=== PATIENT | female | born 1980 | race Caucasian/White ===

== ENCOUNTER 2021-07-18 09:07 | Outpatient (CLI) | payer MEDICAID, SELFPAY ==
--- NOTE | 2021-07-18 09:30 | MR_ITS ---
WS: [id number] MRI RIGHT KNEE HISTORY: RIGHT KNEE PAIN COMPARISON: 06/15/2021 Anterior cruciate ligament: Intact. Posterior cruciate ligament: Intact. Medial collateral ligament: Intact. Posterior lateral corner structures: Intact. Medial menisci: Intrasubstance degeneration in the posterior horn with no tear. Lateral meniscus: Intact. Normal signal, size and shape. Extensor mechanism: Distal quadriceps tendon and patellar tendons are intact. Fluid and soft tissue: No joint effusion. Tiny Sebastian's cyst. Sebastian's cyst is lobulated with a maximum diameter of 1.7 cm. Osseous and articular structures: Patellofemoral compartment: Focal chondromalacia in the medial patellar facet without involvement of the bone. Chondromalacia measures 3.6 mm. Medial compartment: Mild narrowing of the medial compartment. Moderate chondromalacia involving the t ibial plateau and femoral condyle cartilage. There several full-thickness defects but no underlying m arrow edema. Lateral compartment: Mild narrowing of the lateral compartment. Very minimal fissuring of the cartila ge. MR/MR knee RT wo con* [id number] IMPRESSION: 1. Mild narrowing of the medial compartment with moderate chondromalacia invol ving the cartilage of the femoral condyle and tibial plateau. No underlying mar row edema. 2. Focal chondromalacia medial patellar facet. 3. Very mild fissuring of the cartilage in the lateral compartment. 4. Small lobulated Sebastian's cyst.
== END 2021-07-18 09:08 | disposition home or self-care (01) ==
LOC: RADSHAW 09:09
PROVIDERS: PCP Family Medicine; Visit Provider Nurse Practitioner
DX: M94.261 Chondromalacia, right knee (principal); M71.21 Synovial cyst of popliteal space [Baker], right knee; M25.561 Pain in right knee
CPT/HCPCS: 73721

== ENCOUNTER → 2021-11-27 14:55 | Outpatient (BNVA) | payer MEDICAID, SELFPAY | PROVIDERS: PCP Family Medicine; Visit Provider Internal Medicine | DX: R76.8 Other specified abnormal immunological findings in serum (principal); B19.20 Unspecified viral hepatitis C without hepatic coma | CPT/HCPCS: 80053; 80074; 82105; 85025; 87522; 87902 ==

== ENCOUNTER 2021-12-27 06:22 | Outpatient (CLI) | payer MEDICAID, SELFPAY ==
--- NOTE | 2021-12-27 07:00 | US_ITS ---
WS: [id number] ULTRASOUND ABDOMEN LIMITED CLINICAL INFORMATION: hepatitis c COMPARISON: CT 2019 and ultrasound 2016 FINDINGS: Liver Size: Mild hepatomegaly Craniocaudal length: 16.1 cm. Echogenicity: Coarse and hypoechoic Surface nodularity: None. Mass (size and location): None. Normal hepatopedal flow in the main portal vein. Bile ducts Intrahepatic ducts: Normal. Common bile duct diameter: 0.4 cm. Gallbladder Prior cholecystectomy Pancreas Normal as visualized. Right kidney: Small echogenic lesion in the inferior pole likely benign angiomyolipoma. This is not p reviously seen on the prior imaging studies Hydronephrosis: None. Size: 12.7 cm x 5.2 cm x 5.0 cm. Abdominal aorta and IVC Visualized portions are normal. Ascites: None. US/US liver [id number] IMPRESSION: 1. Coarse hypoechoic hepatic echotexture with mild hepatomegaly compatible wit h history of hepatitis. No hepatic lesions. 2. Gallbladder surgically absent. Normal common bile duct. 3. No hydronephrosis in RIGHT kidney. 4. Small echogenic solid lesion inferior pole RIGHT kidney measuring 1.1 x 1.1 x 0.6 cm likely incidental angiomyolipoma 5. No ascites.
== END 2021-12-27 06:23 | disposition home or self-care (01) ==
LOC: RAD 06:23
PROVIDERS: PCP Family Medicine; Visit Provider Internal Medicine
DX: B19.20 Unspecified viral hepatitis C without hepatic coma (principal); N28.9 Disorder of kidney and ureter, unspecified; R16.0 Hepatomegaly, not elsewhere classified
CPT/HCPCS: 76705

== ENCOUNTER → 2022-02-05 15:09 | Outpatient (BNVA) | payer MEDICAID, SELFPAY | PROVIDERS: PCP Family Medicine; Visit Provider Internal Medicine | DX: B19.20 Unspecified viral hepatitis C without hepatic coma (principal); R12 Heartburn | CPT/HCPCS: 87522 ==

== ENCOUNTER → 2022-03-08 09:48 | Outpatient (BNVA) | payer MEDICAID, SELFPAY | PROVIDERS: PCP Family Medicine; Visit Provider Internal Medicine | DX: B19.20 Unspecified viral hepatitis C without hepatic coma (principal) | CPT/HCPCS: 87522 ==

== ENCOUNTER 2022-04-02 08:24 | Day surgery (SDC) | payer MEDICAID, SELFPAY ==
[2022-03-30 12:12] VITALS: BMI 35.2
--- NOTE | 2022-04-02 07:30 | W.PM.OPSFHP ---
Same Day Surgery H&P Indication for Procedure/HPI DATE OF PROCEDURE: April 02, 2022 CHIEF COMPLAINT/INDICATIONFOR SURGICAL PROCEDURE: Heartburn PREOP DIAGNOSIS: Heartburn PLANNED PROCEDURE: Operation Date: 04/02/22 10:00 Proposed Procedures p EGD [id number],R12(Not Applicable) - Alonso Adams MD Medications/Allergies* Home Medications Medication Instructions Recorded Confirmed Type naproxen sodium 220 mg capsule 220 mg PO Q12H PRN 10/24/21 03/30/22 History (Aleve) cyclobenzaprine 10 mg tablet 10 mg PO TID PRN 02/05/22 03/30/22 History omeprazole 20 mg tablet,delayed 20 mg PO QID 03/30/22 03/30/22 History release Allergies/Adverse Reactions Allergy/AdvReac Type Severity Reaction Status Date / Time adhesive tape Allergy howell Verified 03/30/22 12:19 morphine Allergy hives Verified 03/30/22 12:19 Pertinent History/Comorbid Conditions* Medical History (Updated 02/05/22 @ 15:11 by Alonso Adams MD) Hepatitis C Social History Smoking and tobacco status: current every day smoker Pertinent Exam Findings alert, oriented x 3, clear to auscultation bilaterally, regular rate & rhythm, operative site marked and procedure specific exam findings Recommendations Surgery/Procedure today Coding Level of Care Code 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
[2022-04-02 08:55] VITALS: BP 119/88; PULSE 82; RESP 18; TEMP 36; O2SAT 99
[2022-04-02] MEDS: sodium chloride 0.9% 1,000 ML 30 ML IV (09:17)
--- NOTE | 2022-04-02 10:17 | ANES.PREANE2 ---
Pre-Anesthetic Assessment Height/Weight: Height 1.63 m Weight 92.986 kg Temp Pulse Resp BP Pulse Ox 96.8 F L 82 18 119/88 99 04/02/22 08:55 04/02/22 08:55 04/02/22 08:55 04/02/22 08:55 04/02/22 08:55 Preop Diagnosis: Heartburn Operation Date: 04/02/22 10:00 Proposed Procedures p EGD [id number],R12(Not Applicable) - Alonso Adams MD Familial anesthetic complications: none Was Beta Marjorie taken within 24 hours: N/A Was Clonidine taken within 24 hours: N/A Last intake: Intake Last Liquid Date 04/01/22 Last Liquid Time 23:00 Last Solid Date 04/01/22 Last Solid Time 23:00 Social No alcohol and No tobacco Exam alert, oriented x 3, clear to auscultation bilaterally and regular rate & rhythm Airway Submandibular: within normal limits Cervical ROM: within normal limits Mallampati: Class II Dentition: false Pulmonary Sleep Apnea CV/HEM None reported None reported Hepatic Hepatitis (C) GI Gastroesophageal Reflux Disease Poorly controlled reflux Metabolic None reported Musc/skel None reported Neuropsych None reported Anesthetic Plan ASA status: 3 Anesthesia: Anesthesia Evaluation, General and MAC Other: I discussed with the patient risks, goals, and benefits of MAC and general anesthesia. We discussed spectrum of MAC anesthesia including conversion to general as well as possibility of recall of intraoperative stimuli including discomfort/pain. Patient agrees to proceed with MAC. Risk of > 500 ml blood loss (7ml/kg in children): No Medications/Allergies Home Medications Medication Instructions Recorded Confirmed Last Taken Type cyclobenzaprine 10 mg tablet 10 mg PO TID PRN 02/05/22 03/30/22 04/01/22 History pantoprazole 40 mg tablet,delayed 40 mg PO DAILY #90 tab 04/02/22 Unknown Rx release Allergies Allergy/AdvReac Type Severity Reaction Status Date / Time adhesive tape Allergy howell Verified 04/02/22 08:54 morphine Allergy hives Verified 04/02/22 08:54 Current Medications Generic Name Dose Route Start Last Admin Trade Name Freq PRN Reason Stop Dose Admin Sodium Chloride 1,000 mls @ 30 mls/hr 04/02/22 08:45 04/02/22 09:17 Sodium Chloride 0.9% IV 30 mls/hr .Q24H KIMBERLY Administration PFS Anesthesia Medical History Hepatitis C Social History Smoking and tobacco status: current every day smoker Data Anesthesia Cardiac Studies: No Data to Display
[2022-04-02 10:31] VITALS: BP 124/87; PULSE 83; RESP 17; O2SAT 91
[2022-04-02 10:38] VITALS: BP 129/85; PULSE 84; RESP 16; O2SAT 95
--- NOTE | 2022-04-02 10:38 | ANE.PACU2 ---
Documented by User: Marium Smith CRNA 04/02/22 10:38 Inpatient post-anesthesia follow up: Airway intact: Yes Vital signs: Temperature 96.8 F Pulse Rate 83 Respiratory Rate 17 Blood Pressure 124/87 Pulse Oximetry 91 Oxygen Delivery Me thod Nasal Cannula Oxygen Flow Rate 2 Fraction of Inspir ed Oxygen Hydration adequate: Yes Nausea and vomiting: No Pain level: 1 Mental status: Baseline
[2022-04-02 10:48] VITALS: BP 123/81; PULSE 81; RESP 16; O2SAT 94
[2022-04-03 13:29] LABS: H. Pylori / CLO Test Negative
== END 2022-04-02 11:15 | disposition home or self-care (01) ==
PROVIDERS: PCP Family Medicine; Visit Provider Internal Medicine
PROC: 0DJ08ZZ Inspection of Upper Intestinal Tract, Via Natural or Artificial Opening Endoscopic (ICD-10-PCS; CPT 43235; principal; 2022-04-02 10:00)
DX: R12 Heartburn (principal); K25.7 Chronic gastric ulcer without hemorrhage or perforation; Z86.19 Personal history of other infectious and parasitic diseases; F17.200 Nicotine dependence, unspecified, uncomplicated; G47.30 Sleep apnea, unspecified
CPT/HCPCS: 43239; 87077; J2704; J7030

== ENCOUNTER → 2025-04-05 14:07 | Outpatient (BNVA) | payer MEDICAID, SELFPAY | PROVIDERS: PCP Family Medicine; Visit Provider Family Medicine | DX: Z51.81 Encounter for therapeutic drug level monitoring (principal); R61 Generalized hyperhidrosis; R53.81 Other malaise; R53.83 Other fatigue | CPT/HCPCS: 80053; 83001; 84439; 84443; 85025; 86141 ==

== ENCOUNTER → 2025-04-08 13:59 | Outpatient (BNVA) | payer MEDICAID, SELFPAY | PROVIDERS: PCP Family Medicine; Referring Provider Family Medicine; Visit Provider Student in an Organized Health Care Education/Training Program | DX: Z12.11 Encounter for screening for malignant neoplasm of colon (principal) | CPT/HCPCS: 99024; 99204 ==

== ENCOUNTER 2025-04-12 14:38 | Outpatient (CLI) | payer MEDICAID, SELFPAY ==
--- NOTE | 2025-04-12 15:00 | MM_ITS ---
WS: [id number] BILATERAL 3D TOMOSYNTHESIS DIGITAL SCREENING MAMMOGRAPHY WITH CAD CLINICAL INFORMATION: Screening mammogram HISTORY: Screening mammogram. No current complaints. COMPARISON: 2016 TECHNIQUE: Bilateral CC and MLO views. FINDINGS: The breasts are composed of heterogeneous fibroglandular density tissue, which can limit the detection of small underlying mass lesions. Ovoid nodule lateral LEFT breast posterior depth measuring 10 mm may present a lymph node but technically indeterminate. Recommend further evaluation with ultrasound. Unremarkable RIGHT breast. MM/MM [facility] tomosynthesis [id number] IMPRESSION: DENSITY: The breasts are heterogeneously dense, which may obscure small masses. BI-RADS: 0 - Incomplete: Need additional imaging evaluation FOLLOW UP: Need Additional Imaging Recommend LEFT breast ultrasound outer LEFT breast
== END 2025-04-12 14:39 | disposition home or self-care (01) ==
LOC: RAD 14:40
PROVIDERS: PCP Family Medicine; Visit Provider Family Medicine
DX: Z12.31 Encounter for screening mammogram for malignant neoplasm of breast (principal); R92.323 Mammographic fibroglandular density, bilateral breasts; R92.333 Mammographic heterogeneous density, bilateral breasts; N63.21 Unspecified lump in the left breast, upper outer quadrant
CPT/HCPCS: 77063; 77067

== ENCOUNTER → 2025-04-16 11:05 | Outpatient (BNVA) | payer MEDICAID, SELFPAY | PROVIDERS: PCP Family Medicine; Visit Provider Family Medicine | DX: Z01.419 Encounter for gynecological examination (general) (routine) without abnormal findings (principal) | CPT/HCPCS: 87624 ==

== ENCOUNTER 2025-04-29 07:59 | Outpatient (CLI) | payer MEDICAID, SELFPAY ==
--- NOTE | 2025-04-29 08:06 | US_ITS ---
WS: [id number] ULTRASOUND BREAST LEFT TECHNIQUE: Ultrasound left breast focused area of concern. CLINICAL INFORMATION: Ovoid nodule on mammogram COMPARISON: Mammogram 04/12/2025 FINDINGS: Ultrasound upper outer quadrant LEFT breast. In the area of concern, on the prior mammogram, there is an ovoid nodule with central fatty hilum compatible with an intramammary lymph node measuring 8 x 9 x 6 mm. No other suspicious findings. No lesions to target for biopsy. Recommend return to annual screening mammography. US/US breast LT limited* [id number] IMPRESSION: BI-RADS 2 benign Recommend return to annual screening mammography
== END 2025-04-29 08:00 | disposition home or self-care (01) ==
LOC: RAD 08:00
PROVIDERS: PCP Family Medicine; Visit Provider Family Medicine
DX: N63.21 Unspecified lump in the left breast, upper outer quadrant (principal)
CPT/HCPCS: 76642

== ENCOUNTER 2025-05-25 09:39 | Day surgery (SDC) | payer MEDICAID, SELFPAY ==
[2025-05-25 09:54] VITALS: BMI 32.1
[2025-05-25 10:02] VITALS: BP 136/93; PULSE 79; RESP 18; TEMP 36.1; O2SAT 98
--- NOTE | 2025-05-25 10:12 | P.ANESASSM_ITS ---
Pre-Anesthetic Assessment Height/Weight: Height 1.63 m Weight 85.02 kg Temp Pulse Resp BP Pulse Ox O2 Del Method 97 F L 79 18 136/93 98 Room Air 05/25/25 10:02 05/25/25 10:02 05/25/25 10:02 05/25/25 10:02 05/25/25 10:02 05/25/25 10:02 Preop Diagnosis: Screening Operation Date: 05/25/25 11:30 Proposed Procedures p Colonoscopy 39431 G0105, Z12.11(Not Applicable) - Nahun Lieberman MD Was Beta Marjorie taken within 24 hours: N/A Was Clonidine taken within 24 hours: N/A Last intake: Intake Last Liquid Date 05/24/25 Last Liquid Time 20:00 Last Solid Date 05/23/25 Last Solid Time 22:00 Social Tobacco +weed Exam alert, oriented x 3, clear to auscultation bilaterally and regular rate & rhythm Airway Submandibular: within normal limits Cervical ROM: within normal limits Mallampati: Class II Dentition: full History/ROS No significant history except as noted and No significant complaints CV/HEM None reported None reported Hepatic None reported GI None reported Metabolic None reported Musc/skel None reported Neuropsych None reported Anesthetic Plan ASA status: 2 Anesthesia: Anesthesia Evaluation and MAC Risk of > 500 ml blood loss (7ml/kg in children): No Medications/Allergies Home Medications ?Medication ?Instructions ?Recorded ?Confirmed ?Last Taken ?Type estradiol 0.5 mg tablet 0.5 mg PO DAILY #30 tabs 05/19/25 Unknown Rx Allergies Allergy/AdvReac Type Severity Reaction Status Date / Time adhesive tape Allergy howell Verified 04/08/25 14:00 morphine Allergy hives Verified 04/08/25 14:00 [facility] Anesthesia Medical History (Updated 04/16/25 @ 10:33 by Edmar Moreno MD) Hepatitis C s/p treatment in 2021 with clearance Surgical History (Updated 04/16/25 @ 10:22 by Edmar Moreno MD) Hx of tubal ligation 2008 History of cholecystectomy 2007 History of lumbar fusion L4-L5-S1 - !998 Hx of hysterectomy 11/2015 - [facility] - Ovaries left in place - done for bleeding straight for 7 months Family History (Updated 04/16/25 @ 10:20 by Edmar Moreno MD) Father Diabetes mellitus, type 2, Onset Age: 65 Parkinson disease, Onset Age: 65 Mother , at age 47 of colon cancer Colon cancer, Onset Age: 47 at age 47 of colon cancer Family/Other Breast cancer from breast cancer at an older age Social History Smoking and tobacco/nicotine status: never used tobacco/nicotine Alcohol intake: never Substance/Drug Use: never
--- NOTE | 2025-05-25 10:35 | P.HP_ITS ---
Same Day Surgery H&P Indication for Procedure/HPI DATE OF PROCEDURE: May 25, 2025 CHIEF COMPLAINT/INDICATIONFOR SURGICAL PROCEDURE: screening colonoscopy PREOP DIAGNOSIS: screening colonoscopy PLANNED PROCEDURE: Operation Date: 05/25/25 11:30 Proposed Procedures p Colonoscopy 10811 G0105, Z12.11(Not Applicable) - Nahun Lieberman MD Medications/Allergies* Allergies/Adverse Reactions Allergy/AdvReac Type Severity Reaction Status Date / Time adhesive tape Allergy howell Verified 04/08/25 14:00 morphine Allergy hives Verified 04/08/25 14:00 Current Medications: Generic Name Dose Route Start Last Admin Trade Name Freq PRN Reason Stop Dose Admin Sodium Chloride 1,000 mls @ 15 mls/hr 05/25/25 09:50 05/25/25 10:11 Sodium Chloride 0.9% IV 05/26/25 09:49 15 mls/hr .Q24H PRN Administration COLONOSCOPY FLUIDS Pertinent History/Comorbid Conditions* Medical History (Updated 04/16/25 @ 10:33 by Edmar Moreno MD) Hepatitis C s/p treatment in 2021 with clearance Surgical History (Updated 04/16/25 @ 10:22 by Edmar Moreno MD) Hx of tubal ligation 2009 History of cholecystectomy 2007 History of lumbar fusion L4-L5-S1 - !998 Hx of hysterectomy 11/[address] [facility] - Ovaries left in place - done for bleeding straight for 7 months Family History (Updated 04/16/25 @ 10:20 by Edmar Moreno MD) Mother, at age 47 of colon cancer Colon cancer Mother, Onset Age: 47 at age 47 of colon cancer Diabetes mellitus, type 2 Father, Onset Age: 65 Breast cancer Family/Other from breast cancer at an older age Parkinson disease Father, Onset Age: 65 Social History Smoking and tobacco/nicotine status: never used tobacco/nicotine Alcohol intake: never Substance/Drug Use: never Pertinent Exam Findings alert, oriented x 3, clear to auscultation bilaterally, regular rate & rhythm and procedure specific exam findings abdomen soft, nt, nd Recommendations Risks and benefits of procedure reviewed and Patient/family agree to proceed Surgery/Procedure today Coding Level of Care Code Acute Code for Chg Fwd
[2025-05-25 10:58] VITALS: BP 136/93; PULSE 87; RESP 16; TEMP 36.2; O2SAT 98
[2025-05-25] MEDS: ondansetron 2 mg/ML SDV 2 mL 4 MG IVP (11:09)
[2025-05-25 11:23] VITALS: BP 145/85; PULSE 72; RESP 16; O2SAT 100
--- NOTE | 2025-05-25 11:30 | ANE.PACU2 ---
Inpatient post-anesthesia follow up: Airway intact: Yes Vital signs: Temperature 97.2 F Pulse Rate 72 Respiratory Rate 16 Blood Pressure 145/85 Pulse Oximetry 100 Oxygen Delivery Me thod Room Air Oxygen Flow Rate Fraction of Inspir ed Oxygen Hydration adequate: Yes Nausea and vomiting: No Pain level: 1 Mental status: Baseline
== END 2025-05-25 11:33 | disposition home or self-care (01) ==
PROVIDERS: PCP Family Medicine; Visit Provider Student in an Organized Health Care Education/Training Program
PROC: 0DJD8ZZ Inspection of Lower Intestinal Tract, Via Natural or Artificial Opening Endoscopic (ICD-10-PCS; CPT 45378; principal; 2025-05-25 11:30)
DX: Z12.11 Encounter for screening for malignant neoplasm of colon (principal); D12.0 Benign neoplasm of cecum
CPT/HCPCS: 45385; 88305; J2405; J2704; J7030

== ENCOUNTER 2025-05-25 20:25 | Emergency (ER) | payer MEDICAID, SELFPAY ==
[2025-05-25 20:28] VITALS: BP 169/102; PULSE 79; RESP 18; TEMP 36.6; O2SAT 100; BMI 30.9
--- OUTSIDE RECORDS SUMMARY | 2025-05-25 20:29 | XMS_ITS | Patient Health Record ---
Author Organization [facility] Address [address] [place], [place] [id number] Care Team Providers Care Printing Supervisor Name Role Phone Kevin CISSE, Brian Primary Care Provider Cherie Carvajal MD, Olayinka Unavailable [phone] Emmanuel Chavez MD Unavailable Unavailable Allergies Allergen (clinical drug ingredient) Drug/Non Drug Allergy documented on EMR Reaction Allergy Type Onset Date Status None or not verifiab le (as is Current Medications) (uncoded) Unknown Allergy Active Reason For Referral No Information Medications Medication SIG (Take, Route, Frequency, Duration) Notes Start Date End Date Status Alavert D-12 5 mg-120 mg 1 tab orally Q12H Active Social History Tobacco Use: Social History Observation Description Date Details (start date - stop date) Current Smoker NA - NA alcohol Question Answer Notes Did you have a drink contain ing alcohol in the past year? Yes How often did you have a dri nk containing alcohol in the past year? Monthly or less (1 point) How many drinks did you have on a typical day when you were drinking in the past year? 1 or 2 (0 points) How often did you have six o r more drinks on one occasion in the past year? Never (0 points) Points 1 Interpretation Negative Tobacco use: Question Answer Notes : current smoker Are you interested in quitting? Ready to quit How many cigarettes a day do you smoke? 11-20 How often do you smoke cigarettes? every day How soon after you wake up do you smoke your fir st cigarette? 6-30 min Problems Problem Type SNOMED Code ICD Code Onset Dates Problem Status W/U Status Risk Notes Problem Sacroiliitis (79072246) Sacroiliitis (720.2) Active confirmed patient no-showed scheduled appointment Problem Lumbosacral spondylosis without myelopathy (48261787) Lumbosacral spondylosis without myelopathy (721.3) Active confirmed Problem Displacement of lumbar intervertebral disc without myelopathy (68161537) Lumbar (w/out myelopathy) intervertebral disc disorder (722.10) Active confirmed Problem Hypersomnia (26820982) Hypersomnia (780.54) Active confirmed Problem Sleep dysfunction with sleep stage disturbance (090336559) Dysfunctions associated with sleep stages or arousal from sleep (780.56) Active confirmed Problem Low back pain (011111768) Low back pain (724.2) Active confirmed Problem Long-term drug therapy (927530710) LONG-TERM USE MEDS NEC (V58.69) Active confirmed R/O substance abuse Problem Anxiety state (438051573) Anxiety State, other, specified: procedure related (300.09) Active confirmed Problem Lumbar post-laminectomy syndrome (877170744) Postlaminectomy syndrome of lumbar region (722.83) Active confirmed Plan Of Treatment No Information Insurance Providers Payer Name Payer Address Payer Phone Subscriber Number Group Number Insured Name Patient Relationship to Insured Coverage Start Date Coverage End Date [place] [employer] [address] [place] [address] [phone] [id number] Rosa Leavitt Self - patient is the insured Medical (General) History Medical History History ICD Code Low back pain Depression Anxiety disorder Hypertension R/O Drug diversion Surgical History Surgery Date(Month/Year) Lumbar fusion, L4-S1 08/1998 Cholecystectomy 03/2008 Tugal ligation 02/2009 Hospitalization History Reason Date(Month/Year)
[2025-05-25 21:41] LABS: Hematocrit 42.0 % (36-47); Hemoglobin 14.40 g/dL (11.27-16.99); Mean Corpuscular HGB Conc 34.3 g/dL (30-55); Mean Corpuscular Hemoglobin 30.4 pg (27-33); Mean Corpuscular Volume 88.8 fl (85-98); Nucleated Red Blood Cells % 0 %; Platelet Count 251 10^3/cmm (157-399); Red Blood Count 4.73 10^6/uL (3.85-5.65); White Blood Count 13.90 10^3/uL (3.29-11.43)
[2025-05-25 22:05] LABS: Alanine Aminotransferase 28 U/L (0-33); Albumin Level 5.0 g/dL (3.5-5.2); Alkaline Phosphatase 96 U/L (35-105); Anion Gap 23.9 (5-19); Aspartate Amino Transferase 15 U/L (0-32); Blood Urea Nitrogen 6 mg/dL (6-20); Calcium 9.6 mg/dL (8.5-10.5); Carbon Dioxide 16 mmol/L (22-29); Chloride 97 mmol/L (98-107); Creatinine Clr Calc Pharmacy 124.9705; Globulin 3.5 g/dL (1.3-4.6); Glucose 131 mg/dL (65-115); Lipase 13 U/L (13-60); Osmolality Calculated 275 mOsm/kg (285-295); Potassium 3.9 mmol/L (3.5-5.1); Sodium 133 mmol/L (136-145); Total Protein 8.5 g/dL (6.6-8.7)
--- NOTE | 2025-05-25 22:37 | CTR_ITS ---
PROCEDURE INFORMATION: Exam: CT Abdomen And Pelvis Without Contrast Exam date and time: 05/25/2025 10:47 PM Age: 44 years old Clinical indication: Abdominal pain; Prior surgery; Surgery date: Post-operative (0-2 days); Surgery type: Colonoscopy w/ biopsies; Additional info: Abdominal pain/status post colonoscopy approximately 12 hour TECHNIQUE: Imaging protocol: Computed tomography of the abdomen and pelvis without contrast. Radiation optimization: All CT scans at this facility use at least one of these dose optimization techniques: automated exposure control; mA and/or kV adjustment per patient size (includes targeted exams where dose is matched to clinical indication); or iterative reconstruction. COMPARISON: CT kidney stone [id number] 12/14/2018 11:31 PM RADIATION DOSE METRICS: Total DLP (mGy-cm): 728.23 FINDINGS: Liver: Normal. No mass. Gallbladder and biliary ducts: Low The gallbladder is surgically absent. Pancreas: Normal. No ductal dilation. Spleen: Normal. No splenomegaly. Adrenal glands: Normal. No mass. Kidneys and ureters: See Vasculature finding. Stomach and bowel: Unremarkable. No obstruction. No mucosal thickening. Appendix: No evidence of appendicitis. Intraperitoneal space: No free intraperitoneal air is noted. Vasculature: Pelvic phleboliths are present. Multiple pelvic phleboliths around the region of the left ureterovesical junction, which is poorly characterized. No hydroureter is present to suggest obstructive stone. Lymph nodes: Unremarkable. No enlarged lymph nodes. Urinary bladder: Unremarkable as visualized. Reproductive: The uterus is surgically absent. Bones/joints: Postoperative changes from posterior instrumented spinal fusion at L5-S1 without acute complication. Degenerative joint and disc disease is seen in the imaged spine. Soft tissues: Unremarkable. CT/CT abdomen pelvis wo con [id number] IMPRESSION: 1. Multiple pelvic phleboliths in the region of the left ureterovesical junction (UVJ). No hydroureter or hydronephrosis to suggest obstructing stone. Correlate with urinalysis to exclude hematuria as a tiny nonobstructing stone can not be completely excluded. 2. Otherwise, no acute process in the abdomen or pelvis to explain the patient's symptoms.
--- NOTE | 2025-05-25 22:37 | ED_ITS ---
HPI - Abdominal Pain 2 General: Chief Complaint: Abdominal Pain Stated Complaint: colonoscopy w/ biopsy Hurting, N/V Time Seen by Provider: 05/25/25 21:58 History of Present Illness: 44-year-old female presents emergency ro om complaining of abdominal pain and nausea. Earlier today she had a colonoscopy shortly after that she began having nausea and vomiting denies any attempts or coffee-ground emesis she has passed some flatus since the colonoscopy but no solid stool no blood. Most of her pain is epigastric in nature. She denies any fever sweats or chills. No dysuria urgency or frequency Associated Symptoms: Reports nausea and vomiting; Denies chills, coffee ground emesis, dysuria, fever(s), hematochezia, hematemesis and melena Related Data Previous Rx's ?Medication ?Instructions ?Recorded estradiol 0.5 mg tablet 0.5 mg PO DAILY #30 tabs ondansetron HCl 4 mg tablet 4 mg PO Q6H PRN nausea and 05/26/25 vomiting #10 tabs Allergies Allergy/AdvReac Type Severity Reaction Status Date / Time adhesive tape Allergy howell Verified 05/25/25 20:36 morphine Allergy hives Verified 05/25/25 20:36 Review of Systems 2 Const: Denies: fever(s) or chills Card: Denies: chest pain Resp: Denies: dyspnea GI: Reports: abdominal pain, nausea and vomiting; Denies: hematemesis, coffee ground emesis, hematochezia or melena : Denies: dysuria, urinary frequency or urinary urgency Musc: Denies: neck pain or back pain Skin/Breast: Denies: rash PFSH ED 2 PFSH: Medical History Hepatitis C s/p treatment in 2021 with clearance Surgical History Hx of tubal ligation 2008 History of cholecystectomy 2007 History of lumbar fusion [id number] - ![id number] Hx of hysterectomy 11/2015 - [facility] - Ovaries left in place - done for bleeding straight for 7 months Family History Father Diabetes mellitus, type 2, Onset Age: 65 Parkinson disease, Onset Age: 65 Mother , at age 47 of colon cancer Colon cancer, Onset Age: 47 at age 47 of colon cancer Family/Other Breast cancer from breast cancer at an older age Social History Smoking and tobacco/nicotine status: never used tobacco/nicotine Alcohol intake: never Substance/Drug Use: never Physical Exam 2 Const: GENERAL APPEARANCE: cooperative ORIENTATION/CONSCIOUSNESS: Yes awake, Yes oriented to person, Yes oriented to place and Yes oriented to time HENMT: COMMON NORMALS: normocephalic, atraumatic and hearing grossly normal bilaterally HEAD & SCALP: normocephalic and atraumatic Resp: COMMON NORMALS: normal respiratory effort, No retractions, No use of accessory muscles and clear to auscultation bilaterally AUSCULTATION: clear to auscultation bilaterally Cardio: COMMON NORMALS: regular rate, regular rhythm and No murmurs present (Cardio) RATE: regular rate RHYTHM: regular rhythm GI: COMMON NORMALS: Soft to palpation and No hepatosplenomegaly present A USCULTATION: Yes normoactive bowel sounds PALPATION: Yes Soft to palpation, No Tenderness to palpation present (GI), No Guarding due to palpation present (GI) and Yes No hepatosplenomegaly present Extremity: COMMON NORMALS: normal to inspection, capillary refill normal, no clubbing, cyanosis or edema, no calf tenderness and no pedal edema Neuro: SENSORIUM/ORIENTATION: Yes oriented to person, Yes oriented to place and Yes oriented to time Skin: COMMON NORMALS: no rashes or lesions noted GENERAL SKIN EXAM: no rashes or lesions noted Course 2 Vital Signs: Vital signs: Vital Signs Temperature 97.9 F 05/25/25 20:28 Pulse Rate 94 05/26/25 00:41 Respiratory Rate 16 05/26/25 00:41 Blood Pressure 120/72 05/26/25 00:41 Pulse Oximetry 96 05/26/25 00:41 Oxygen Delivery Me thod Room Air 05/26/25 00:21 MDM - Abdominal Pain Medical Decision Making CT did not show any acute abnormalities. There is a question of possible nephrolithiasis. She does not have any hematuria her presenting symptoms not suggestive of nephrolithiasis. Laboratory test shows volume depletion. She is feeling much better most of her abdominal discomfort is resolved after receiving fluids. Will discharge patient home continue same postop instructions from her colonoscopy advance diet as tolerated follow-up with your primary care doctor. Medical Records I reviewed the patient's medical records. Lab Data I reviewed the patient's lab results. 05/25/25 21:33 05/25/25 21:33 Labs/Radiology: Radiology Impressions Abdomen/Pelvis CT 05/25/25 22:37 IMPRESSION: 1. Multiple pelvic phleboliths in the region of the left ureterovesical junction (UVJ). No hydroureter or hydronephrosis to suggest obstructing stone. Correlate with urinalysis to exclude hematuria as a tiny nonobstructing stone can not be completely excluded. 2. Otherwise, no acute process in the abdomen or pelvis to explain the patient's symptoms. Laboratory Results WBC 13.90 10^3/uL (3.29-11.43) H 05/25/25 21:33 RBC 4.73 10^6/uL (3.85-5.65) 05/25/25 21:33 Hgb 14.40 g/dL (11.27-16.99) 05/25/25 21:33 Hct 42.0 % (36-47) 05/25/25 21:33 MCV 88.8 fl (85-98) 05/25/25 21:33 MCH 30.4 pg (27-33) 05/25/25 21:33 MCHC 34.3 g/dL (30-55) 05/25/25 21:33 RDW 11.3 % (12.1-15.1) L 05/25/25 21:33 Plt Count 251 10^3/cmm (157-399) 05/25/25 21:33 MPV 9.2 fL (7.4-10.4) 05/25/25 21:33 Neut % (Auto) 90.4 % 05/25/25 21:33 Lymph % (Auto) 7.6 % 05/25/25 21:33 Andrews % (Auto) 1.5 % 05/25/25 21:33 Eos % (Auto) 0.0 % 05/25/25 21:33 Baso % (Auto) 0.3 % 05/25/25 21:33 Neut # (Auto) 12.57 10^3/uL (1.8-7.7) H 05/25/25 21:33 Lymph # (Auto) 1.1 10^3/uL (0.8-4.8) 05/25/25 21:33 Andrews # (Auto) 0.2 10^3/uL (0.2-0.9) 05/25/25 21:33 Eos # (Auto) 0.0 10^3/uL (0.0-0.8) 05/25/25 21:33 Baso # (Auto) 0.0 10^3/uL (0.0-0.1) 05/25/25 21:33 Nucleated RBC % (auto) 0 % 05/25/25 21: Nucleated RBCs # 0.0 /100WBC 05/25/25 21:33 Sodium 133 mmol/L (136-145) L 05/25/25 21:33 Potassium 3.9 mmol/L (3.5-5.1) 05/25/25 21: Chloride 97 mmol/L (98-107) L 05/25/25 21: Carbon Dioxide 16 mmol/L (22-29) L 05/25/25 21:33 Anion Gap 23.9 (5-19) H 05/25/25 21:33 BUN 6 mg/dL (6-20) 05/25/25 21:33 Creatinine 0.6 mg/dL (0.5-0.9) 05/25/25 21:33 GFR Calculation 109.1 mL/min (90-130) 05/25/25 21:33 Glucose 131 mg/dL (65-115) H 05/25/25 21:33 Calculated Osmolality 275 mOsm/kg (285-295) L 05/25/25 21:33 Calcium 9.6 mg/dL (8.5-10.5) 05/25/25 21:33 Total Bilirubin 0.8 mg/dL (0.15-1.2) 05/25/25 21: AST 15 U/L (0-32) 05/25/25 21:33 ALT 28 U/L (0-33) 05/25/25 21:33 Alkaline Phosphatase 96 U/L (35-105) 05/25/25 21:33 Total Protein 8.5 g/dL (6.6-8.7) 05/25/25 21: Albumin 5.0 g/dL (3.5-5.2) 05/25/25 21:33 Globulin 3.5 g/dL (1.3-4.6) 05/25/25 21:33 Lipase 13 U/L (13-60) 05/25/25 21:33 Urine Color Yellow (Yellow) 05/26/25 00:01 Urine Appearance Clear (CLEAR) 05/26/25 00:01 Urine pH 5.5 (5-7) 05/26/25 00:01 Ur Specific [place] 1.016 (1.005-1.030) 05/26/25 00:01 Urine Protein Negative (Negative) 05/26/25 00:01 Urine Glucose (UA) Negative (Normal) 05/26/25 00:01 Urine Ketones 3+ (Negative) H 05/26/25 00:01 Urine Blood Negative (Negative) 05/26/25 00:01 Urine Nitrate Negative (Negative) 05/26/25 00:01 Urine Bilirubin Negative (Negative) 05/26/25 00:01 Urine Urobilinogen 0.2 mg/dL (Negative) 05/26/25 00:01 Ur Leukocyte Esterase Negative (Negative) 05/26/25 00:01 Urine RBC 0-2 /hpf (0-2) 05/26/25 00:01 Urine WBC 0-5 /hpf (0-5) 05/26/25 00:01 Ur Squamous Epith Cells 0-5 /hpf (0-5) 05/26/25 00:01 Amorphous Sediment Not Reportable 05/26/25 00:01 Urine Bacteria None seen /hpf (NONE) 05/26/25 00:01 Hyaline Casts 0-4 /lpf H 05/26/25 00:01 All radiology interpretation(s) finalized by discharge Discharge Plan Discharge Patient Disposition: Home Clinical Impression: Abdominal pain, Mild dehydration Condition: Stable Prescriptions: New ondansetron HCl 4 mg tablet 4 mg PO Q6H PRN (Reason: nausea and vomiting) Qty: 10 0RF No Action estradiol 0.5 mg tablet 0.5 mg PO DAILY Qty: 30 2RF Discharge Orders: Discharge ED (Routine); Ordered 05/26/25 Ordered By: Jose Laura Referrals: Edmar Moreno MD [Primary Care Provider, Family Practice] Discharge Diet: As Directed Discharge Activity: Resume usual activity Patient Instructions: Abdominal Pain (ED), Opioid Safety, Pain Management, Patient Portal & Lilibeth Instructions Activity Restrictions/Additional Instructions: Thank you for choosing [facility] for your healthcare needs today. It is very important that you follow up as instructed or that you return to the Emergency Department should you have concerns or if your condition changes or worsens in any way. Emergency department visits are focused on emergent conditions, in some cases you may require further evaluation on an outpatient basis. You were seen in the emergency room with complaints, your lab work showed mild dehydration. CT of the abdomen showed some air in the colon but otherwise unremarkable. There is a question of kidney stones however believe this is more artifactual may be what is called phleboliths these are benign. There is no sign of kidney stones either on your exam or your lab work. Continue same instructions you increase as you are given ondansetron to use for your vomiting. (Please note that included in your discharge packet is information concerning opioid safety and pain management. This information is given to all patients were discharged from the ER regardless of their discharge diagnosis or the medicines they usually take or are prescribed.) Print Language: Bulgarian Coding Level of Care Code ED Sole Cutter for Marlen Flores
[2025-05-25] MEDS: ondansetron 2 mg/ML SDV 2 mL 4 MG IVP (22:52)
[2025-05-26 00:18] LABS: Glucose Urine UA Negative (Normal); Nitrate Urine Negative (Negative); Specific Gravity, Urine 1.016 (1.005-1.030)
[2025-05-26 00:21] VITALS: BP 120/72; PULSE 75; RESP 16; O2SAT 94
[2025-05-26 00:27] LABS: Add Urine Microscopic? YES
[2025-05-26 00:41] VITALS: BP 120/72; PULSE 94; RESP 16; O2SAT 96
== END 2025-05-26 00:40 | disposition home or self-care (01) ==
PROVIDERS: Emergency Provider Family Medicine; PCP Family Medicine
DX: R10.9 Unspecified abdominal pain (principal); E86.0 Dehydration
CPT/HCPCS: 36415; 74176; 80053; 81001; 83690; 85025; 96374; 99285; J2405; J7030

== ENCOUNTER → 2025-06-14 09:39 | Outpatient (BNVA) | payer MEDICAID, SELFPAY | PROVIDERS: PCP Family Medicine; Visit Provider Student in an Organized Health Care Education/Training Program | DX: Z09 Encounter for follow-up examination after completed treatment for conditions other than malignant neoplasm (principal) | CPT/HCPCS: 99213 ==